=== PATIENT | male | born 1955 | race Caucasian/White ===

== ENCOUNTER 2017-03-16 10:38 | Inpatient (IN) | payer SELFPAY ==
--- NOTE | ~2017-03-16 | IDS ---
Interim Discharge Summary [facility] [address] [place]. [address] NAME: HOLDEN JUDGE : 51 STATUS : DIS IN PAT#: [id number] AGE: 61 ADM/REG DATE : 03/16/17 MR#: [id number] REPORT SERV DATE: 04/15/17 DICTATED BY: SCOTTIE LAWLER DATE: 04/15/17 REPORT STATUS : Draft TRANSCRIBED BY: MODL DATE: 04/15/17 ADMISSION DATE: 03/16/2017 DISCHARGE DATE: 04/13/2017 This interim discharge summary will cover the dates of 04/05/2017 until 04/09/2017. CURRENT INTERIM DIAGNOSES: Includes, 1. Osteomyelitis of the left foot methicillin-resistant Staphylococcus aureus, status post I and D and bone debridement on 03/20/2017. 2. Diabetes type 2, hemoglobin A1c 8.5. 3. Iron-deficiency anemia. 4. Hypertension. 5. Early dementia and cognitive impairment. 6. Gait impairment. 7. Neuropathy. HISTORY OF PRESENT ILLNESS: Please see initial H and P of Dr. Jacob Gold. This patient was admitted from Dr. Maradiaga's office for left foot osteomyelitis. The patient had consultants during this admission of Infectious Disease, Podiatry, and Psychiatry. Please see the interim discharge summaries of Dr. Zachary Olivares and the interim summaries of Dr. Jacob Gold as well for a lengthy hospital course. Now continuation in hospital course beginning on 04/05/2017, I began seeing the patient who had been improving and was actually able to be assisted up to chair by the nurse's. He was continued to be nonweightbearing on the left lower extremity at the order of Podiatry. He was continued on his IV vancomycin to be completed on the date of 04/05/2017. Blood sugars were mildly elevated and I increased his metformin to compensate for this. In a followup the next day, I did notice that he seemed to have a tendency to repeat himself in conversation and seemed his short-term memory was somewhat impaired and his overall judgment were not the most prudent, although he was alert and oriented, he was unable to answer simple questions about some of his living arrangements and prior medical history including his doctor, where he got his medications, and so forth. We were initially waiting on decision for [facility] or [facility] and neither of these were able to be established and under further discussion with the patient and the patient's family and Case Management, it was discovered the patient lived in a trailer behind a car lot. The trailer did not even have a bathroom. He would have difficulty getting in and out of the trailer and felt like this was an unsafe environment for him given his cognitive impairment and nonweightbearing status of his left lower extremity. He needed followup in regard to the left lower extremity anyway and further surgeries under the watchful eye of Podiatry. The nursing staff and Physical Therapy were concerned about his ability to care for himself. It turned out to be a difficult disposition with his self-care deficit, memory issues, and his living arrangement in a camper. I asked Psychiatry for a formal evaluation to be performed and hopefully a safe living arrangement will be able to be established for him to be discharged to home and perhaps with his sister or brother. We are in the process of attempting to contact them, messages have been left. Dr. Gold to assume care of this patient on the morning of 04/10/2017. Interim Discharge Summary [address] [address] NAME: HOLDEN JUDGE : 51 STATUS : DIS IN PAT#: [id number] AGE: 61 ADM/REG DATE : 03/16/17 MR#: [id number] REPORT SERV DATE: 04/15/17 DICTATED BY: SCOTTIE LAWLER DATE: 04/15/17 REPORT STATUS : Draft TRANSCRIBED BY: LIDIA DATE: 04/15/17 RANDI/LIDIA Scottie Lawler NP / [id number] CC: Jacob Gold M.D.
--- NOTE | ~2017-03-16 | IDS ---
Interim Discharge Summary [facility] [address] [place]. [address] NAME: HOLDEN JUDGE : 51 STATUS : ADM IN PAT#: [id number] AGE: 61 ADM/REG DATE : 03/16/17 MR#: [id number] REPORT SERV DATE: 04/05/17 DICTATED BY: OTIS GOLD DATE: 04/04/17 REPORT STATUS : Draft TRANSCRIBED BY: MODL DATE: 04/04/17 ADMISSION DATE: 03/16/2017 DISCHARGE DATE: Interim summary covers period 03/27/2017 through 04/04/2017. CURRENT DIAGNOSES: 1. Left foot methicillin-resistant Staphylococcus aureus diabetic foot infection with fifth metatarsal osteomyelitis, status post debridement and excision of fifth metatarsal base with peroneus brevis tendon transfer, 03/20/2017, Dr. Maradiaga. 2. Uncontrolled diabetes. 3. Cognitive impairment with visual hallucinations, consider Lewy body disease. 4. Neuropathy. 5. Iron deficiency. Replaced with Nulecit. Negative stools for Hemoccult. At some point, need endoscopic evaluation. 6. Chronic anemia. 7. Hypertension. OPERATIONS AND PROCEDURES: During this interim, None. INTERIM SUMMARY: He has continued to receive vancomycin. His treatment course per Infectious Disease recommendation finishes on 04/05/2017. There have been no complications with this therapy to date and he has maintained a normal renal function. His diabetes control has significantly improved with the use of b.i.d. metformin and correction scale insulin with a.c. and h.s. blood sugars for the last 48 hours ranging from 117 to 182. Because of some cognitive issues with varying degrees of confusion as well as some visual hallucinations, additional testing was done that included an EEG. This was read by Dr. Liu as mildly abnormal, predominantly due to low amplitude and lack of well-formed waking rhythm with abnormal sleep pattern without evolution of sleep to stage II. Findings nonspecific. No clear epileptiform activity. In addition, a brain MRI was done which showed chronic small vessel ischemic changes, mild for age. He has been started on low-dose Aricept. Transition plans are still not established. He is walking with a walker. He has been seen by PT. He is learning how to navigate steps. He has a . He is to remain nonweightbearing until followup with Dr. Maradiaga postdischarge next week. He currently lives in a camper on his work site, [email or web address]. The dentist Leighton Vasquez is his power of state's attorney. I spoke with him today. Case Management is diligently working to provide a safe transition. Hospitalist care will be assumed by Dr. Olivares on 04/05/2017. Interim Discharge Summary [address] [address] NAME: HOLDEN JUDGE : 51 STATUS : ADM IN PAT#: [id number] AGE: 61 ADM/REG DATE : 03/16/17 MR#: [id number] REPORT SERV DATE: 04/05/17 DICTATED BY: OTIS GOLD DATE: 04/04/17 REPORT STATUS : Draft TRANSCRIBED BY: LIDIA DATE: 04/04/17 DD/LIDIA Otis Gold M.D. / [id number] CC: Otis Gold M.D.
--- NOTE | ~2017-03-16 | HP ---
History And Physical [facility] [address] [place]. [address] NAME: HOLDEN DELEON : 51 STATUS : ADM IN [facility]#: [id number] AGE: 61 ADM/REG DATE : 03/16/17 MR#: [id number] REPORT SERV DATE: 03/16/17 DICTATED BY: OTIS GOLD DATE: 03/16/17 REPORT STATUS : Draft TRANSCRIBED BY: MODRonel DATE: 03/16/17 DATE OF ADMISSION: 03/16/2017 CHIEF COMPLAINT: This is a 61-year-old white male without a primary care physician, referred from Dr. Maradiaga's office with left foot osteomyelitis. The history was obtained from the patient, Dr. Maradiaga, and review of medical records on [facility] [address]. HISTORY OF PRESENT ILLNESS: Mr. Deleon was advised to see Dr. Maradiaga by his employer because of some left foot pain that he has been having, particularly walking on outside gravel at the place of his employment. He has a left foot wound but has not been having any drainage. He has not been having any fever, chills, or sweats. He has lost about 11 pounds over 2 to 3 years which has been intentional. He has not had any rash or redness over his foot. He has some numbness. He has not had any headache, earache, sore throat, chest pain, shortness of breath, cough, dizziness, syncope, or tachy palpitations. He has not had any difficulty chewing or swallowing and has had no easy satiety, reflux, bloating, abdominal pain, constipation, diarrhea, change in bowel habits, or rectal bleeding. He has not had any dysuria, hematuria, or trouble starting or stopping his urinary stream. He has had 3 previous toe amputations on the left side and has an abnormal gait. He wears tennis shoes. He has a previous history of osteomyelitis of right 5th metatarsal head and a plantar ulceration. He had a right 5th metatarsal head resection and ulcer excision on 02/18/2014. He has no history of cancer, thyroid disease, COPD, sleep apnea, pulmonary fibrosis, documented coronary disease, syncope, stroke, seizure, gastrointestinal bleeding, pancreatitis, or hepatitis. He has not required evaluation by Urology for urinary bleeding or renal stones. He has no systemic rheumatic disorder and is not on immunosuppressive therapy. His other medical history includes 1. Diabetes. 2. Neuropathy. 3. Hypertension. ALLERGIES OR INTOLERANCE: To penicillin. HOME MEDICATIONS: Zestoretic 20/25 daily and Glucophage 500 mg twice daily. SOCIAL HISTORY: Not . No children. No tobacco or alcohol use. 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 FAMILY HISTORY: Mother last month with dementia in her 80s. Father had previously of bladder cancer. A sister with leukemia. He has a brother living and well. History And Physical [address] [address] NAME: HOLDEN DELEON : 51 STATUS : ADM IN [facility]#: [id number] AGE: 61 ADM/REG DATE : 03/16/17 MR#: [id number] REPORT SERV DATE: 03/16/17 DICTATED BY: OTIS GOLD DATE: 03/16/17 REPORT STATUS : Draft TRANSCRIBED BY: LIDIA DATE: 03/16/17 REVIEW OF SYSTEMS: Complete, done with the patient in room and negative except as noted above. PHYSICAL EXAMINATION: VITAL SIGNS: O2 saturation is 99% on room air, blood pressure 120/73, temperature 97.4, pulse 75, and respirations 18. GENERAL: This is a stated age-appearing white male, who is alert, conversant, and appropriate. SKIN: Warm and dry. EXTREMITIES: Bilateral lower extremities have a scaly skin and some lymphedema. There is no erythema, lymphangitis, or wound with drainage. There is a callus on lateral aspect of surgically deformed left foot which is nontender. NODES: No palpable axillary, cervical, or inguinal. HEENT: Atraumatic with symmetric facies. Lids, sclerae, and conjunctivae negative. No xanthelasma, scleral icterus, or conjunctival petechiae or injection. Pupils are equal, round, and reactive to light. Extraocular movements intact. No nystagmus. Hearing intact. External ears negative. Ear canals and TMs normal. Nose negative. Anterior nares clear. Lips, gums, mucosa, hard and soft palate, posterior pharynx, tongue negative. He has poor dentition with carious teeth. NECK: No visible JVD or asymmetry. No palpable mass, goiter, or tenderness. He does have a sebaceous cyst to the right trapezius muscle. LUNGS: Clear to auscultation. Normal respiratory effort. HEART: PMI not palpable. Regular rate and rhythm. No murmur, gallop, rub, or click. Pulses 2+ and symmetric radial, carotids, femoral, and dorsalis pedis and popliteal. ABDOMEN: Soft, nontender. No guarding, rebound, or rigidity. Cannot feel liver, spleen, kidneys, or aortic pulsation in upper or lower extremities. EXTREMITIES: No active synovitis or clubbing. Status post left 5th, 4th, 3rd toe resection, left foot with high arch and callus as noted above. NEUROLOGIC: Mental status normal. Cranial nerves 2 through 12 normal. Deep tendon reflexes 1+ triceps, brachioradialis and knee jerk. Absent ankle jerk. Downgoing toes. Sensory intact to touch. PSYCHIATRIC: Appropriate mood and affect. DATA: Sodium 141, potassium 4.4, chloride 103, CO2 of 30, BUN 16, creatinine 1.27. Glucose 147, calcium 8.6, total protein 7.1, albumin 3.7, globulin is 3.4, total bilirubin 0.4, alkaline phosphatase 97, ALT 15, AST 12. Hemoglobin A1c is pending, white count 3.9, hemoglobin 12.7, and platelets are 193,000. Urinalysis not available. ASSESSMENT: This is a 61-year-old white male, referred with 1. Suspected osteomyelitis, left foot. 2. Left foot wound. 3. Diabetes, on oral treatment. 4. Neuropathy. 5. Previous toe amputation x3 left foot and right 5th metatarsal head resection with ulcer excision, right foot. 6. Anemia. History And Physical [address] [address] NAME: HOLDEN DELEON : 51 STATUS : ADM IN [facility]#: [id number] AGE: 61 ADM/REG DATE : 03/16/17 MR#: [id number] REPORT SERV DATE: 03/16/17 DICTATED BY: OTIS GOLD DATE: 03/16/17 REPORT STATUS : Draft TRANSCRIBED BY: LIDIA DATE: 03/16/17 7. Leukopenia. PLAN: Dr. Maradiaga has requested Infectious Disease consultation, MRI imaging, arterial Dopplers, and plain radiographs. We will continue home medications. Do anemia evaluation and check baseline x-ray and EKG anticipating OR time if in fact osteomyelitis is documented. Further recommendations pending above. DD/MODL Otis Gold M.D. / [id number] CC: Efrain Mo M.D.
--- NOTE | ~2017-03-16 | CN ---
Consultation Report [facility] [address] [place]. [address] NAME: HOLDEN JUDGE : 51 STATUS : ADM IN PAT#: [id number] AGE: 61 ADM/REG DATE : 03/16/17 MR#: [id number] REPORT SERV DATE: 04/10/17 DICTATED BY: LEX MULLEN DATE: 04/10/17 REPORT STATUS : Draft TRANSCRIBED BY: MODRonel DATE: 04/10/17 PSYCHIATRIC CONSULTATION DATE OF CONSULTATION: 04/10/2017 I reviewed this patient's medical record. I discussed his status with Dr. Gold. I discussed his status with the social security specialist and with his physical therapist. He was admitted with osteomyelitis of his left foot. He is now status post debridement. There is concern about his cognitive capacity to make decisions regarding his placement. The social security specialist informs me that he was planning to return to his trailer, but the patient now tells me that he is planning to live with his sister in [place]. PAST PSYCHIATRIC HISTORY: No preexisting psychiatric issues. During this hospitalization; however, a problem with short-term memory was noted by the physical therapist and others. SOCIAL HISTORY: He is single. He was working in secondhand car sales and he was living in a small [place] [facility]. He now tells me that he will no longer be able to work there. He drives a car. He has never been lost while driving. MENTAL STATUS: He was sitting up in a chair. He was talkative. His mood was euthymic. He displayed an appropriate affect and a good affective range. His thinking was logical. He had no delusions. He had no hallucinations at this time. He was oriented to "May"- "[facility]"-"[facility]." He did not know the year and was not able to make a guess at it. He had short-term memory as demonstrated by his repeating himself on a number of occasions. DIAGNOSIS: Mild cognitive impairment versus mild dementia. RECOMMENDATIONS: He was able to give an adequate description of his illness and his associated disability. He was aware that his previous living arrangement would no longer be suitable and that his old job would no longer be available. He seemed to be content with going to live with his sister. In general, he appears to have capacity for medical and placement decision making. I will sign off. ZAHRAA/LIDIA Lex Mullen M.D. / [id number] CC: Jacob Gold M.D.
--- NOTE | ~2017-03-16 | DS ---
Discharge Summary [facility] [address] [place]. [address] NAME: HOLDEN JUDGE : 51 STATUS : DIS IN PAT#: [id number] AGE: 61 ADM/REG DATE : 03/16/17 MR#: [id number] REPORT SERV DATE: 04/16/17 DICTATED BY: OTIS GOLD DATE: 04/13/17 REPORT STATUS : Draft TRANSCRIBED BY: MODL DATE: 04/13/17 ADMISSION DATE: 03/16/2017 DISCHARGE DATE: 04/13/2017 DISCHARGE DIAGNOSES: 1. Left foot methicillin-resistant Staphylococcus aureus; diabetic foot infection with fifth metatarsal osteomyelitis, status post debridement and excision of fifth metatarsal base with peroneus brevis tendon transfer on 03/20/2017, Dr. Maradiaga. 2. Uncontrolled diabetes, improved at discharge. 3. Cognitive impairment with visual hallucinations. Consider Lewy body disease. 4. Peripheral neuropathy. 5. Iron deficiency. Replace with Nulecit. Negative stools for Hemoccult. Needs outpatient endoscopic GI evaluation. 6. Chronic anemia. 7. Hypertension with orthostatic hypotension in hospital, on home medications. Medications discontinued. Normotensive at discharge. OPERATION/PROCEDURES: See above. PRESENT ILLNESS: This is a 61-year-old white male without a primary care physician who was referred from Dr. Maradiaga's office the day of admission with left foot osteomyelitis as outlined on admission history and physical examination dictated by the undersigned. ADDITIONAL HISTORY: Per history and physical examination. PHYSICAL EXAMINATION: Per history and physical examination. ADMISSION LABORATORY: Per history and physical examination. HOSPITAL COURSE: His hospital course is as outlined on interim summaries dictated by Dr. Zachary Olivares on 03/26/2017, the undersigned on 04/04/2017, and by Carlos Enrique Rojas APN, on 04/09/2017 (yet to be dictated). Hospital course from 04/10/2017 through 04/13/2017: The patient's discharge had been delayed pending a safe transition. The medical care team had originally been apprised that the patient and his family were estranged. As it turns out, this was not the case. The patient was visited by his brother and this was discussed. The patient's sister, Janett, agreed to take the patient home to live with her for an indefinite period of time. There were no new medical problems during this time. He is being discharged today with followup at the [facility]. He will also follow with Dr. Maradiaga. In the future, he needs an outpatient colonoscopy and EGD. He was given a rolling walker for home use at discharge. Prior to discharge, his daughter filled Discharge Summary [facility] [address] [place]. [address] NAME: HOLDEN JUDGE : 51 STATUS : DIS IN PAT#: [id number] AGE: 61 ADM/REG DATE : 03/16/17 MR#: [id number] REPORT SERV DATE: 04/16/17 DICTATED BY: OTIS GOLD DATE: 04/13/17 REPORT STATUS : Draft TRANSCRIBED BY: MODL DATE: 04/13/17 out applications for [employer] and [employer]. DISCHARGE MEDICATIONS: Will be B12 of 1000 mcg p.o. daily, Aricept 5 mg at bedtime, folic acid 1 mg daily, multivitamin 1 daily, MiraLAX 1 packet, and Senokot 2 as needed, metformin a 1000 mg twice daily. He will not use Prinivil at this time. DICTATED BY: Otis Gold M.D. DD/LIDIA Otis Gold M.D. / [id number] CC: Vivien Love D.P.M. [facility]
--- NOTE | ~2017-03-16 | OP ---
Record Of Operation [facility] [address] [place]. [address] NAME: HOLDEN JUDGE : 51 STATUS : DIS IN PAT#: [id number] AGE: 61 ADM/REG DATE : 03/16/17 MR#: [id number] REPORT SERV DATE: 05/14/17 DICTATED BY: MOUSTAPHA MARADIAGA DATE: 05/11/17 REPORT STATUS : Draft TRANSCRIBED BY: LIDIA DATE: 05/11/17 DATE OF PROCEDURE: 03/20/2017 SURGERY PERFORMED: At [facility]. PREOPERATIVE DIAGNOSES: 1. Osteomyelitis left foot. 2. 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 POSTOPERATIVE DIAGNOSES: 1. Osteomyelitis left foot. 2. 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 PROCEDURES: 1. Bone debridement, left foot including debridement of residual left 5th metatarsal and portions of the left cuboid bone. 2. Left peroneus brevis tendon transfer. PATHOLOGY: Bone and soft tissue sent for histologic analysis as well as deep tissue culture sent for Gram stain, culture, sensitivity. ANESTHESIA: General. HEMOSTASIS: 350 mmHg thigh tourniquet. ESTIMATED BLOOD LOSS: Less than 5 mL. MATERIALS: Arthrex SwiveLock bone anchor with 2-0 FiberWire, 2-0 Ethilon. COMPLICATIONS: None. INDICATIONS: This is a 61-year-old gentleman who presented recently to the office with concern of a wound on his left foot. The patient underwent surgical debridement of the left foot including removal of the distal left 5th metatarsal several months ago and unfortunately was lost to follow up. The patient presented to the office with non healing ulceration, but upon examination it was noted that he had a cavovarus foot type with ankle varus noted particularly with the patient weightbearing. The apex of the deformity laterally was directly at the site of the ulceration. There was some reduced ability to the left foot ankle; however, the deformity was only partially reducible. There was concern that there was exposed bone noted at the site of the ulceration and based on these clinical findings, I recommended the patient be admitted to the hospital for IV antibiotic therapy and surgical debridement. Discussed at length with the patient the alternatives, benefits, possible complications of surgery which would involve debridement of the residual left 5th metatarsal as well as debridement of infected bone in the cuboid. I also discussed with the patient that due to the peroneal dysfunction that removal of the 5th metatarsal would further weaken the left peroneus brevis tendon resulting in worsening of cavovarus foot type Record Of Operation [facility] [address] [place]. [address] NAME: HOLDEN JUDGE : 51 STATUS : DIS IN PAT#: [id number] AGE: 61 ADM/REG DATE : 03/16/17 MR#: [id number] REPORT SERV DATE: 05/14/17 DICTATED BY: MOUSTAPHA MARADIAGA DATE: 05/11/17 REPORT STATUS : Draft TRANSCRIBED BY: MODRonel DATE: 05/11/17 and that transfer of the tendon can be performed either to soft tissue or bone to help prevent any further progression of this deformity. No promises or guarantees were given. The patient is scheduled for surgery. BRIEF SUMMARY OF OPERATION: The patient was brought to the operating room, placed on the operating table in supine position. Appropriate monitoring equipment including EKG, blood pressure, pulse oximeter were attached to the patient and found to be in working order. IV access was established on the floor. Patient was receiving IV antibiotic therapy. The patient was identified by the surgeon, general seizure was induced. The patient's left foot and leg were then prepped and draped in usual sterile manner. The left foot and leg were elevated and pneumatic thigh tourniquet was raised to 350 mmHg. Attention was directed toward the lateral aspect of the left foot where a curvilinear incision was made coursing along the residual left 5th metatarsal turning superiorly as the incision went proximal along the distal peroneus brevis tendon. The incision was deepened with sharp and blunt dissection. Superficial veins were identified and ligated via electrocautery. Neurovascular structures were identified, retracted from the operative site. Incision was opened exposing the entire residual left 5th metatarsal bone. There was some necrosis to the distal aspect of the bone consistent with osteomyelitis. At this time, the peroneus brevis tendon was clamped and the 5th metatarsal was dissected from the operative site in toto. This resected bone was sent for histologic analysis. Portions of the distal cuboid were also resected for bone biopsy as well as to resect any suspicious osteomyelitic bone. There did not appear to be adequate capsular tissue in order to tenodese the peroneus brevis tendon to the soft tissue. It was felt that a tenodesis of the tendon to bone would be more stable. An Arthrex SwiveLock was inserted into the dorsal lateral aspect of the residual cuboid on the left foot. With the foot and ankle reduced as close to neutral position as possible, the tenodesis of the brevis tendon was performed with a modified Santiago type suture with the FiberWire from the SwiveLock. Once the tenodesis was intact, operative site was copiously irrigated with 3000 mL normal saline. Pulse irrigation was completed. The skin was remodeled for closure. The proximal distal aspects of the incision were reapproximated with 2-0 Ethilon suture in a simple interrupted and interrupted horizontal mattress fashion. A small portion of the central part of the incision at the original wound was left open. This was packed with quarter-inch iodoform packing. Operative site infiltrated with 1:1 mixture 1% Xylocaine plain and 0.5% Marcaine plain for postoperative analgesia. Standard postop dressing including dry sterile gauze, and a 4 inch Burke wrap was applied to the left foot. Tourniquet was let down. Cap refills were noted to return to the foot immediately and be well within normal limits under 3 seconds. A 4-inch Burke wrap was applied over the postop dressings for adequate postop compression. Capillary refills of this residual toes on the left foot were within normal limits after application of the Burke wrap. The patient tolerated procedure and anesthesia well. The patient left the operating room, returned to recovery room with vital signs stable and vital signs intact. The patient will be readmitted to the floor at [facility] for continued IV antibiotic therapy and postoperative care. We will plan to remove the packing tomorrow and re-dress the left foot and apply a posterior splint to further stabilize the tenodesis of the left foot. I discussed again with the patient and patient's family that this is a partially reducible Record Of Operation [address] [place]. [address] NAME: HOLDEN JUDGE : 51 STATUS : DIS IN PAT#: [id number] AGE: 61 ADM/REG DATE : 03/16/17 MR#: [id number] REPORT SERV DATE: 05/14/17 DICTATED BY: MOUSTAPHA MARADIAGA DATE: 06/16/17 REPORT STATUS : Draft TRANSCRIBED BY: LIDIA DATE: 05/11/17 rear foot and ankle varus deformity due to the longstanding presence of this deformity. I discussed with the patient and the patient's family that based on the patient's progress that this possibility of further surgery in order to reduce this deformity as well as offloading this deformity with an ankle-foot orthotic. We will follow up the patient on the floor. /LIDIA Moustapha Maradiaga D.P.M. / [id number]
--- NOTE | ~2017-03-16 | CN ---
Consultation Report [facility] [address] [place]. [address] NAME: HOLDEN JUDGE : 51 STATUS : ADM IN PAT#: [id number] AGE: 61 ADM/REG DATE : 03/16/17 MR#: [id number] REPORT SERV DATE: 03/16/17 DICTATED BY: DIMITRI GONZALEZ DATE: 03/16/17 REPORT STATUS : Draft TRANSCRIBED BY: MODRonel DATE: 03/16/17 INFECTIOUS DISEASE CONSULT DATE OF CONSULTATION: REASON FOR REFERRAL: Evaluation and treatment of diabetic foot infection. HISTORY OF PRESENT ILLNESS: The patient is a 61-year-old male. He has a history of diabetes and diabetic neuropathy in his lower extremities. He has lost toes on his left foot before and then was here again with a deep infection including bone more than three years ago, for which he had a left metatarsal head resection. 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 He was seen by Dr. Maradiaga and had development of a chronic-appearing ulcer there. I do not have any records to say whether or not a culture of that has been taken or any x-rays, he was on trimethoprim and sulfa as an outpatient. He is admitted now for further workup. He has no fevers, chills, malaise, or flu-like symptoms and he says he feels quite normal. He has neuropathy and is not complaining of pain, and the foot is mildly red and no active drainage at present. There have been no unusual environmental exposures. PAST MEDICAL HISTORY: Otherwise unremarkable. MEDICATIONS: He has been on trimethoprim and sulfa. Vancomycin has been ordered. ALLERGIES: HE HAS NO KNOWN ANTIMICROBIAL ALLERGIES. SOCIAL HISTORY: He works in [employer] as previously mentioned. He is single, nonsmoker. No history of alcohol or substance abuse. FAMILY HISTORY: Noncontributory. PHYSICAL EXAMINATION: GENERAL: Nontoxic, elderly male, in no acute distress. Alert and oriented x3. VITAL SIGNS: His temperature so far has been 97.4 with a pulse of 75, respirations 18, blood pressure 120/73. Weight 77 kg. HEENT: Sclerae are clear. No oral lesions. NECK: Supple. LUNGS: Clear. HEART: Regular rate and rhythm. ABDOMEN: Soft, nontender. Positive bowel sounds. EXTREMITIES: Left foot shows incision from the past metatarsal resection about the mid foot laterally. There is a shallow ulceration that appears to be chronic with a mild surrounding redness, but no warmth. I could express no drainage. There is no odor associated with it. No acute-appearing lesions on any other extremities. Consultation Report [address] [place]. [address] NAME: HOLDEN JUDGE : 51 STATUS : ADM IN [facility]#: [id number] AGE: 61 ADM/REG DATE : 03/16/17 MR#: [id number] REPORT SERV DATE: 03/16/17 DICTATED BY: DIMITRI GONZALEZ DATE: 03/16/17 REPORT STATUS : Draft TRANSCRIBED BY: LIDIA DATE: 03/16/17 LABORATORY DATA: White count 3.9, hematocrit 37.3, and platelets 193. His sedimentation rate is 10. BUN and creatinine are 16 and 1.27. IMPRESSION: Diabetic foot infection, appears to be chronic, possibly osteo, but it appears very nonacute at present. RECOMMENDATIONS: 1. We would hold antibiotics. 2. Evaluate imaging. If a procedure is indicated, we should continue to hold antibiotics until that is done, so good deep cultures can be done off the antibiotics to increase the yield. Finally, I will follow the patient with you. I appreciate very much your consulting on this patient. SUKHDEV Dimitri Gonzalez M.D. / [id number] CC: Vivien Romero D.P.M.
--- NOTE | ~2017-03-16 | EEG ---
Electroencephalogram [facility] [address] [place]. [address] NAME: HOLDEN JUDGE : 51 STATUS : ADM IN PAT#: [id number] AGE: 61 ADM/REG DATE : 03/16/17 MR#: [id number] REPORT SERV DATE: 03/28/17 DICTATED BY: NOHEMI ANTOINE DATE: 03/28/17 REPORT STATUS : Draft TRANSCRIBED BY: MODL DATE: 03/28/17 DATE OF EXAM: 03/28/2017. EEG NUMBER: [id number]. HOURS OF SLEEP: 7 to 8. CENTRAL OFFICE OPERATOR SUPERVISOR: Carlos Enrique Dorantes INTRODUCTION: This is an 18-channel EEG recorded with scalp electrodes in the International 10-20 system. The patient is a 61-year-old male with delirium. Listed medications include alprazolam, Prinivil, hydrochlorothiazide, folic acid, B12, vancomycin, and NovoLog insulin. DESCRIPTION: The background rhythm while awake consisted of low amplitude predominantly beta activity seen diffusely from all head regions. A well-formed alpha rhythm was not recorded. He was very drowsy and remained drowsy throughout the EEG; however, a well-formed stage II sleep was not recorded. Occasionally, there was slowing from the left temporal region; however, this was very brief and did not persist. There were rare sharply contoured waves from the temporal regions also, infrequent and not clearly epileptogenic. Photic stimulation from the 1 through 21 hertz frequencies produced a slight driving response at the mid and high frequencies, although of low amplitude. Hyperventilation was not performed. IMPRESSION: THIS EEG IS MILDLY ABNORMAL PREDOMINANTLY DUE TO LOW AMPLITUDES AND LACK OF WELL-FORMED WAKING RHYTHM AND ABNORMAL SLEEP PATTERN WITHOUT EVOLUTION OF SLEEP TO STAGE II. THESE FINDINGS ARE NONSPECIFIC, BUT MAY INDICATE A SLEEP DISTURBANCE. THERE IS NO CLEAR EPILEPTIFORM ACTIVITY NOTED. LOW AMPLITUDES ARE OCCASIONALLY A NORMAL VARIANT, BUT BILATERAL SUPERFICIAL LESIONS MAY LOWER THE AMPLITUDES OF THE EEG WELL. RAMBO/LIDIA Nohemi Antoine M.D. / [id number] CC: Jacob Gold M.D.
--- NOTE | ~2017-03-16 | IDS ---
Interim Discharge Summary [facility] [address] [place]. [address] NAME: HOLDEN JUDGE : 51 STATUS : ADM IN PAT#: [id number] AGE: 61 ADM/REG DATE : 03/16/17 MR#: [id number] REPORT SERV DATE: 03/26/17 DICTATED BY: ZACHARY MAY DATE: 03/26/17 REPORT STATUS : Draft TRANSCRIBED BY: MODL DATE: 03/26/17 ADMISSION DATE: 03/16/2017 DISCHARGE DATE: WORKING DIAGNOSIS: 1. Left foot methicillin-resistant Staphylococcus aureus osteomyelitis, status post debridement, postoperative day #6. 2. Uncontrolled diabetes, present on admission, but blood sugar has been better controlled here. 3. Hypertension. 4. Peripheral neuropathy. 5. Iron-deficiency anemia with negative Hemoccult stools and stable hemoglobin. 6. Cognitive impairment, mild and compensated. CONSULTANTS: 1. Dr. Chandler of Podiatry. 2. Dr. Kemp of Infectious Disease. PROCEDURES: Debridement of his left foot wounds on 03/21/2017, by Dr. Chandler. HOSPITAL COURSE: This is a 61-year-old gentleman with a history of diabetes, hypertension, neuropathy, who was admitted to the hospital with an infected left foot wounds with MRSA and osteomyelitis. For details, please refer to excellent H and P by Dr. Jacob Gold. In summary, the patient was admitted and was started on IV antibiotic therapy. The patient was evaluated by Podiatry and underwent wound debridement. The patient has also been followed by Dr. Kemp. Postop cultures, it seems that Podiatry was able to get all of the infected bone and thus the patient currently only needs two weeks of IV antibiotic therapy postop. The patient currently has ten more days of IV vancomycin therapy left until 04/05/2017. Otherwise, the patient has been doing extremely well. The patient actually walked 125 feet with physical therapy yesterday and thus he does not qualify for SNF. Case Management is now working to get the patient home tomorrow with nine days remaining of IV antibiotics therapy for complete at home. CINTIA/LIDIA Zachary May MD / [id number] CC: Zachary May MD
[~2017-03-16 10:38] MED LIST: ASAB PO; CEFADROXIL1 GM PO; HUMULIN SC; IBU-200200 MG PO; LEVAQUIN750 MG PO; MULTIPLE VIT PO; T PO
[2017-03-16 12:03] LABS: BASOPHILS ABSOLUTE 0.04 10/3/uL (0.0-0.16); EOSINOPHILS 2.8 %; EOSINOPHILS ABSOLUTE 0.11 10/3/uL (0.0-0.53); HEMATOCRIT 37.3 % (40.0-51.0); HEMOGLOBIN 12.7 g/dL (13.6-17.8); IMMATURE GRANULOCYTES 0.3 %; IMMATURE GRANULOCYTES ABSOLUTE 0.01 10/3/uL (0.0-0.11); LYMPHOCYTES 34.1 %; LYMPHOCYTES ABSOLUTE 1.34 10/3/uL (0.67-4.30); MEAN CORPUSCULAR HEMOGLOB 28.9 pg (26.0-34.0); MEAN CORPUSCULAR VOLUME 84.8 fL (80-100); MONOCYTES 8.1 %; MONOCYTES ABSOLUTE 0.32 10/3/uL (0.21-1.20); NEUTROPHILS 53.7 %; NEUTROPHILS ABSOLUTE 2.11 10/3/uL (2.02-8.40); PLATELET COUNT 193 10/3/uL (150-400); WHITE BLOOD CELLS 3.9 10/3/uL (4.5-10.5)
[2017-03-16 12:05] LABS: MANUAL DIFF NO %
[2017-03-16 12:12] LABS: INTERNATIONAL NORMAL RATI 1.1 UNITS (-); PROTIME (NOT ORD) 14.3 SEC (12.0-14.5)
[2017-03-16 12:17] LABS: A/G RATIO 1.1 (0.7-1.9); ALKALINE PHOSPHATASE 97 U/L (45-117); CALCIUM, SERUM 8.6 MG/DL (8.5-10.4); CHLORIDE, SERUM 103 MMOL/L (96-112); GLOBULIN 3.4 G/DL (2.5-4.1); POTASSIUM, SERUM 4.4 MMOL/L (3.5-5.3); SGOT(AST) 12 U/L (5-40); SGPT(ALT) 15 U/L (5-65); SODIUM, SERUM 141 MMOL/L (135-148); TOTAL BILIRUBIN 0.4 MG/DL (0-1.2); TOTAL PROTEIN 7.1 G/DL (6.0-8.5)
[2017-03-16 12:21] LABS: ALBUMIN 3.7 G/DL (3.5-5.0); BUN (BLOOD UREA NITROGEN) 16 MG/DL (6-23); CO2 (CARBON DIOXIDE) 30 MMOL/L (24-34); CREATININE 1.27 MG/DL (0.70-1.30); GFR AFRICAN AMERICAN 69 ML/MIN (>=60); GFR NON AFRICAN AMERICAN 60 ML/MIN (>=60); GLUCOSE, SERUM 147 MG/DL (60-99)
[2017-03-16 12:57] LABS: SED RATE 10 MM/HR (0-15)
[2017-03-16] MEDS ORDERED: ZESTORETIC1 TA1 PO (13:32)
[2017-03-16] MEDS ORDERED: GLUCPH PO (13:32)
[2017-03-16 15:03] LABS: ASCORBIC ACID (UR NOT ORDER) NEG (NEG); BILIRUBIN, URINE NEGATIVE (NEG); KETONE, URINE NEGATIVE (NEG); LEUKOCYTE ESTERASE(NOT OR NEG (NEG); WBC (NOT ORDERED) (RFLEX) < 1 (0-5)
[2017-03-16 17:19] LABS: RETICULOCYTE COUNT 0.8 % (0.5-2.9); RETICULOCYTE COUNT ABSOLUTE 35.3 10/3/uL (20.2-119.8)
[2017-03-16 17:40] LABS: FERRITIN 29 NG/ML (26-388); IRON BINDING CAPACITY 324 MCG/DL (250-450); IRON, SERUM 105 MCG/DL (35-150); ULTRASENSITIVE TSH 0.795 MCIU/ML (0.358-3.740)
[2017-03-17 06:34] LABS: T PROTEIN (ELECT)(NOT OR 6.7 G/DL (6.0-8.5)
[2017-03-18 06:54] LABS: BASOPHILS 0.3 %; BASOPHILS ABSOLUTE 0.02 10/3/uL (0.0-0.16); EOSINOPHILS 2.5 %; EOSINOPHILS ABSOLUTE 0.15 10/3/uL (0.0-0.53); HEMATOCRIT 38.7 % (40.0-51.0); HEMOGLOBIN 13.2 g/dL (13.6-17.8); IMMATURE GRANULOCYTES 0.2 %; IMMATURE GRANULOCYTES ABSOLUTE 0.01 10/3/uL (0.0-0.11); LYMPHOCYTES 20.3 %; LYMPHOCYTES ABSOLUTE 1.21 10/3/uL (0.67-4.30); MEAN CORPUS HGB CONC 34.1 g/dL (32.0-36.0); MEAN CORPUSCULAR HEMOGLOB 29.1 pg (26.0-34.0); MEAN CORPUSCULAR VOLUME 85.2 fL (80-100); MEAN PLATELET VOLUME 9.5 fL (9.2-13.0); MONOCYTES 7.9 %; MONOCYTES ABSOLUTE 0.47 10/3/uL (0.21-1.20); NEUTROPHILS 68.8 %; NEUTROPHILS ABSOLUTE 4.11 10/3/uL (2.02-8.40); PLATELET COUNT 186 10/3/uL (150-400); RBC DISTRIBUTION WIDTH 12.5 % (12.0-16.0); RED CELL COUNT 4.54 10/6/uL (4.7-6.1); RETICULOCYTE COUNT 0.7 % (0.5-2.5); RETICULOCYTE COUNT ABSOLUTE 31.8 10/3/uL (20.2-119.8)
[2017-03-18 06:57] LABS: BUN (BLOOD UREA NITROGEN) 16 MG/DL (6-23); CALCIUM, SERUM 9.2 MG/DL (8.5-10.4); CHLORIDE, SERUM 104 MMOL/L (96-112); CO2 (CARBON DIOXIDE) 30 MMOL/L (24-34); CREATININE 0.88 MG/DL (0.70-1.30); GFR AFRICAN AMERICAN 106 ML/MIN (>=60); GFR NON AFRICAN AMERICAN 91 ML/MIN (>=60); GLUCOSE, SERUM 163 MG/DL (60-99); POTASSIUM, SERUM 4.4 MMOL/L (3.5-5.3); SODIUM, SERUM 140 MMOL/L (135-148)
[2017-03-18 07:13] LABS: MANUAL DIFF NO %
[2017-03-19 02:19] LABS: BASOPHILS 0.5 %; BASOPHILS ABSOLUTE 0.03 10/3/uL (0.0-0.16); EOSINOPHILS 2.4 %; EOSINOPHILS ABSOLUTE 0.15 10/3/uL (0.0-0.53); HEMATOCRIT 37.7 % (40.0-51.0); HEMOGLOBIN 13.1 g/dL (13.6-17.8); IMMATURE GRANULOCYTES 0.3 %; IMMATURE GRANULOCYTES ABSOLUTE 0.02 10/3/uL (0.0-0.11); LYMPHOCYTES 20.4 %; LYMPHOCYTES ABSOLUTE 1.28 10/3/uL (0.67-4.30); MEAN CORPUS HGB CONC 34.7 g/dL (32.0-36.0); MEAN CORPUSCULAR HEMOGLOB 29.2 pg (26.0-34.0); MEAN PLATELET VOLUME 9.6 fL (9.2-13.0); MONOCYTES 8.6 %; MONOCYTES ABSOLUTE 0.54 10/3/uL (0.21-1.20); NEUTROPHILS 67.8 %; NEUTROPHILS ABSOLUTE 4.24 10/3/uL (2.02-8.40); PLATELET COUNT 185 10/3/uL (150-400); RBC DISTRIBUTION WIDTH 12.6 % (12.0-16.0); RED CELL COUNT 4.49 10/6/uL (4.7-6.1); WHITE BLOOD CELLS 6.3 10/3/uL (4.5-10.5)
[2017-03-19 02:21] LABS: MANUAL DIFF NO %
[2017-03-19 02:30] LABS: BUN (BLOOD UREA NITROGEN) 19 MG/DL (6-23); CALCIUM, SERUM 8.7 MG/DL (8.5-10.4); CHLORIDE, SERUM 103 MMOL/L (96-112); CO2 (CARBON DIOXIDE) 29 MMOL/L (24-34); CREATININE 0.83 MG/DL (0.70-1.30); GFR AFRICAN AMERICAN 109 ML/MIN (>=60); GFR NON AFRICAN AMERICAN 94 ML/MIN (>=60); GLUCOSE, SERUM 178 MG/DL (60-99); POTASSIUM, SERUM 4.2 MMOL/L (3.5-5.3); SODIUM, SERUM 139 MMOL/L (135-148)
[2017-03-19 09:49] LABS: A/G 1.66 RATIO (0.9-2.10); ALB RELATIVE % 62.4 % (60.0-89.0); ALBUMIN (ELECTRO) 4.18 GM/DL (3.2-5.5); ALPHA 1 (ELECTRO) 0.21 GM/DL (0.1-0.4); ALPHA 1 RELAT % (NOT ORD) 3.1 % (1.0-4.0); ALPHA 2 (ELECTRO) 0.76 GM/DL (0.5-1.10); ALPHA 2 RELAT % 11.3 % (4.5-26.0); BETA GLOBULIN (SPE) 0.79 GM/DL (0.60-1.30); BETA RELATIVE % 11.8 % (9.0-22.0); GAMMA GLOBULIN (SPE) 0.76 G/DL (0.70-1.60); GAMMA RELAT % 11.4 % (6.0-22.0)
[2017-03-20 07:20] LABS: BASOPHILS 0.6 %; BASOPHILS ABSOLUTE 0.03 10/3/uL (0.0-0.16); EOSINOPHILS 2.2 %; EOSINOPHILS ABSOLUTE 0.11 10/3/uL (0.0-0.53); HEMATOCRIT 38.5 % (40.0-51.0); HEMOGLOBIN 13.2 g/dL (13.6-17.8); IMMATURE GRANULOCYTES 0.2 %; IMMATURE GRANULOCYTES ABSOLUTE 0.01 10/3/uL (0.0-0.11); LYMPHOCYTES 30.4 %; MANUAL DIFF NO %; MEAN CORPUS HGB CONC 34.3 g/dL (32.0-36.0); MEAN CORPUSCULAR HEMOGLOB 29.1 pg (26.0-34.0); MEAN PLATELET VOLUME 9.2 fL (9.2-13.0); MONOCYTES 10.1 %; NEUTROPHILS 56.5 %; NEUTROPHILS ABSOLUTE 2.78 10/3/uL (2.02-8.40); PLATELET COUNT 162 10/3/uL (150-400); RBC DISTRIBUTION WIDTH 12.6 % (12.0-16.0); RED CELL COUNT 4.53 10/6/uL (4.7-6.1); WHITE BLOOD CELLS 4.9 10/3/uL (4.5-10.5)
[2017-03-20 07:33] LABS: CALCIUM, SERUM 8.7 MG/DL (8.5-10.4); CHLORIDE, SERUM 105 MMOL/L (96-112); CO2 (CARBON DIOXIDE) 28 MMOL/L (24-34); CREATININE 0.68 MG/DL (0.70-1.30); GFR AFRICAN AMERICAN 118 ML/MIN (>=60); GFR NON AFRICAN AMERICAN 102 ML/MIN (>=60); POTASSIUM, SERUM 4.2 MMOL/L (3.5-5.3); SODIUM, SERUM 140 MMOL/L (135-148)
[2017-03-20 07:34] LABS: BUN (BLOOD UREA NITROGEN) 15 MG/DL (6-23); GLUCOSE, SERUM 126 MG/DL (60-99)
[2017-03-20 20:49] LABS: HEMATOCRIT 36.5 % (40.0-51.0); HEMOGLOBIN 12.7 g/dL (13.6-17.8)
[2017-03-21 06:24] LABS: BASOPHILS 0.6 %; BASOPHILS ABSOLUTE 0.04 10/3/uL (0.0-0.16); EOSINOPHILS 2.1 %; EOSINOPHILS ABSOLUTE 0.14 10/3/uL (0.0-0.53); HEMATOCRIT 36.7 % (40.0-51.0); HEMOGLOBIN 12.6 g/dL (13.6-17.8); IMMATURE GRANULOCYTES 0.2 %; IMMATURE GRANULOCYTES ABSOLUTE 0.01 10/3/uL (0.0-0.11); LYMPHOCYTES 17.2 %; LYMPHOCYTES ABSOLUTE 1.14 10/3/uL (0.67-4.30); MEAN CORPUS HGB CONC 34.3 g/dL (32.0-36.0); MEAN CORPUSCULAR HEMOGLOB 29.4 pg (26.0-34.0); MEAN CORPUSCULAR VOLUME 85.7 fL (80-100); MEAN PLATELET VOLUME 9.6 fL (9.2-13.0); MONOCYTES 9.2 %; MONOCYTES ABSOLUTE 0.61 10/3/uL (0.21-1.20); NEUTROPHILS 70.7 %; PLATELET COUNT 200 10/3/uL (150-400); RBC DISTRIBUTION WIDTH 12.6 % (12.0-16.0); RED CELL COUNT 4.28 10/6/uL (4.7-6.1); WHITE BLOOD CELLS 6.6 10/3/uL (4.5-10.5)
[2017-03-21 06:25] LABS: MANUAL DIFF NO %
[2017-03-21 07:21] LABS: SED RATE 13 MM/HR (0-15)
[2017-03-22 11:13] LABS: CREATININE 0.87 MG/DL (0.70-1.30)
[2017-03-23 06:07] LABS: CREATININE 0.85 MG/DL (0.70-1.30)
[2017-03-25 01:46] LABS: BASOPHILS 0.6 %; BASOPHILS ABSOLUTE 0.03 10/3/uL (0.0-0.16); EOSINOPHILS 3.2 %; EOSINOPHILS ABSOLUTE 0.17 10/3/uL (0.0-0.53); HEMATOCRIT 32.4 % (40.0-51.0); HEMOGLOBIN 11.4 g/dL (13.6-17.8); IMMATURE GRANULOCYTES 0.4 %; IMMATURE GRANULOCYTES ABSOLUTE 0.02 10/3/uL (0.0-0.11); LYMPHOCYTES 25.9 %; LYMPHOCYTES ABSOLUTE 1.38 10/3/uL (0.67-4.30); MANUAL DIFF NO %; MEAN CORPUS HGB CONC 35.2 g/dL (32.0-36.0); MEAN CORPUSCULAR HEMOGLOB 29.5 pg (26.0-34.0); MEAN CORPUSCULAR VOLUME 83.7 fL (80-100); MEAN PLATELET VOLUME 9.3 fL (9.2-13.0); MONOCYTES 11.4 %; MONOCYTES ABSOLUTE 0.61 10/3/uL (0.21-1.20); NEUTROPHILS 58.5 %; NEUTROPHILS ABSOLUTE 3.12 10/3/uL (2.02-8.40); PLATELET COUNT 205 10/3/uL (150-400); RBC DISTRIBUTION WIDTH 12.3 % (12.0-16.0); RED CELL COUNT 3.87 10/6/uL (4.7-6.1); WHITE BLOOD CELLS 5.3 10/3/uL (4.5-10.5)
[2017-03-25 02:02] LABS: CHLORIDE, SERUM 103 MMOL/L (96-112); CREATININE 0.99 MG/DL (0.70-1.30); GFR AFRICAN AMERICAN 94 ML/MIN (>=60); GFR NON AFRICAN AMERICAN 81 ML/MIN (>=60); POTASSIUM, SERUM 4.2 MMOL/L (3.5-5.3); SODIUM, SERUM 139 MMOL/L (135-148); VANCOMYCIN TROUGH 18.8 MCG/ML (10.0-20.0)
[2017-03-25 02:05] LABS: BUN (BLOOD UREA NITROGEN) 20 MG/DL (6-23); CO2 (CARBON DIOXIDE) 33 MMOL/L (24-34); GLUCOSE, SERUM 153 MG/DL (60-99)
[2017-03-26 05:26] LABS: BUN (BLOOD UREA NITROGEN) 20 MG/DL (6-23); CALCIUM, SERUM 9.1 MG/DL (8.5-10.4); CHLORIDE, SERUM 103 MMOL/L (96-112); CO2 (CARBON DIOXIDE) 31 MMOL/L (24-34); CREATININE 0.91 MG/DL (0.70-1.30); GFR AFRICAN AMERICAN 104 ML/MIN (>=60); GFR NON AFRICAN AMERICAN 89 ML/MIN (>=60); GLUCOSE, SERUM 123 MG/DL (60-99); HEMATOCRIT 33.3 % (40.0-51.0); HEMOGLOBIN 11.5 g/dL (13.6-17.8); MEAN CORPUS HGB CONC 34.5 g/dL (32.0-36.0); MEAN CORPUSCULAR HEMOGLOB 28.8 pg (26.0-34.0); MEAN CORPUSCULAR VOLUME 83.5 fL (80-100); MEAN PLATELET VOLUME 9.4 fL (9.2-13.0); PLATELET COUNT 235 10/3/uL (150-400); POTASSIUM, SERUM 4.4 MMOL/L (3.5-5.3); RBC DISTRIBUTION WIDTH 12.7 % (12.0-16.0); RED CELL COUNT 3.99 10/6/uL (4.7-6.1); SODIUM, SERUM 138 MMOL/L (135-148); WHITE BLOOD CELLS 5.8 10/3/uL (4.5-10.5)
[2017-03-26 05:28] LABS: MANUAL DIFF NO %
[2017-03-26 06:31] LABS: SED RATE 26 MM/HR (0-15)
[2017-03-28 05:55] LABS: BASOPHILS 0.5 %; BASOPHILS ABSOLUTE 0.03 10/3/uL (0.0-0.16); EOSINOPHILS 3.8 %; EOSINOPHILS ABSOLUTE 0.21 10/3/uL (0.0-0.53); HEMATOCRIT 32.5 % (40.0-51.0); HEMOGLOBIN 11.2 g/dL (13.6-17.8); IMMATURE GRANULOCYTES 0.4 %; IMMATURE GRANULOCYTES ABSOLUTE 0.02 10/3/uL (0.0-0.11); LYMPHOCYTES 35.6 %; LYMPHOCYTES ABSOLUTE 1.95 10/3/uL (0.67-4.30); MEAN CORPUS HGB CONC 34.5 g/dL (32.0-36.0); MEAN CORPUSCULAR HEMOGLOB 29.6 pg (26.0-34.0); MEAN CORPUSCULAR VOLUME 85.8 fL (80-100); MEAN PLATELET VOLUME 9.3 fL (9.2-13.0); MONOCYTES 8.4 %; MONOCYTES ABSOLUTE 0.46 10/3/uL (0.21-1.20); NEUTROPHILS 51.3 %; PLATELET COUNT 246 10/3/uL (150-400); RBC DISTRIBUTION WIDTH 12.5 % (12.0-16.0); RED CELL COUNT 3.79 10/6/uL (4.7-6.1); WHITE BLOOD CELLS 5.5 10/3/uL (4.5-10.5)
[2017-03-28 05:56] LABS: MANUAL DIFF NO %
[2017-03-28 06:08] LABS: BUN (BLOOD UREA NITROGEN) 20 MG/DL (6-23); CALCIUM, SERUM 9.2 MG/DL (8.5-10.4); CHLORIDE, SERUM 103 MMOL/L (96-112); CO2 (CARBON DIOXIDE) 28 MMOL/L (24-34); CREATININE 0.91 MG/DL (0.70-1.30); GFR AFRICAN AMERICAN 104 ML/MIN (>=60); GFR NON AFRICAN AMERICAN 89 ML/MIN (>=60); GLUCOSE, SERUM 125 MG/DL (60-99); SODIUM, SERUM 138 MMOL/L (135-148)
[2017-03-29 05:52] LABS: BASOPHILS 0.9 %; BASOPHILS ABSOLUTE 0.05 10/3/uL (0.0-0.16); EOSINOPHILS 4.4 %; EOSINOPHILS ABSOLUTE 0.24 10/3/uL (0.0-0.53); HEMATOCRIT 33.7 % (40.0-51.0); HEMOGLOBIN 11.7 g/dL (13.6-17.8); IMMATURE GRANULOCYTES 0.4 %; IMMATURE GRANULOCYTES ABSOLUTE 0.02 10/3/uL (0.0-0.11); LYMPHOCYTES ABSOLUTE 1.47 10/3/uL (0.67-4.30); MEAN CORPUS HGB CONC 34.7 g/dL (32.0-36.0); MEAN CORPUSCULAR VOLUME 83.6 fL (80-100); MEAN PLATELET VOLUME 9.2 fL (9.2-13.0); MONOCYTES 7.4 %; NEUTROPHILS 59.9 %; NEUTROPHILS ABSOLUTE 3.26 10/3/uL (2.02-8.40); PLATELET COUNT 234 10/3/uL (150-400); RBC DISTRIBUTION WIDTH 12.8 % (12.0-16.0); RED CELL COUNT 4.03 10/6/uL (4.7-6.1); WHITE BLOOD CELLS 5.4 10/3/uL (4.5-10.5)
[2017-03-29 05:54] LABS: MANUAL DIFF NO %
[2017-03-29 05:56] LABS: BUN (BLOOD UREA NITROGEN) 19 MG/DL (6-23); CHLORIDE, SERUM 107 MMOL/L (96-112); CO2 (CARBON DIOXIDE) 28 MMOL/L (24-34); CREATININE 0.82 MG/DL (0.70-1.30); GFR AFRICAN AMERICAN 109 ML/MIN (>=60); GFR NON AFRICAN AMERICAN 94 ML/MIN (>=60); GLUCOSE, SERUM 124 MG/DL (60-99); POTASSIUM, SERUM 4.1 MMOL/L (3.5-5.3); SODIUM, SERUM 142 MMOL/L (135-148)
[2017-03-29 14:45] LABS: CEA 0.8 NG/ML
[2017-03-30 06:20] LABS: BASOPHILS 0.4 %; BASOPHILS ABSOLUTE 0.02 10/3/uL (0.0-0.16); EOSINOPHILS ABSOLUTE 0.17 10/3/uL (0.0-0.53); HEMATOCRIT 33.2 % (40.0-51.0); HEMOGLOBIN 11.5 g/dL (13.6-17.8); IMMATURE GRANULOCYTES 0.4 %; IMMATURE GRANULOCYTES ABSOLUTE 0.02 10/3/uL (0.0-0.11); LYMPHOCYTES 27.1 %; LYMPHOCYTES ABSOLUTE 1.55 10/3/uL (0.67-4.30); MEAN CORPUS HGB CONC 34.6 g/dL (32.0-36.0); MEAN CORPUSCULAR VOLUME 83.8 fL (80-100); MEAN PLATELET VOLUME 9.2 fL (9.2-13.0); MONOCYTES 10.3 %; MONOCYTES ABSOLUTE 0.59 10/3/uL (0.21-1.20); NEUTROPHILS 58.8 %; NEUTROPHILS ABSOLUTE 3.36 10/3/uL (2.02-8.40); PLATELET COUNT 246 10/3/uL (150-400); RBC DISTRIBUTION WIDTH 12.8 % (12.0-16.0); RED CELL COUNT 3.96 10/6/uL (4.7-6.1); WHITE BLOOD CELLS 5.7 10/3/uL (4.5-10.5)
[2017-03-30 06:22] LABS: MANUAL DIFF NO %
[2017-03-30 06:30] LABS: CALCIUM, SERUM 9.1 MG/DL (8.5-10.4); CHLORIDE, SERUM 106 MMOL/L (96-112); CO2 (CARBON DIOXIDE) 30 MMOL/L (24-34); CREATININE 0.95 MG/DL (0.70-1.30); GFR AFRICAN AMERICAN 98 ML/MIN (>=60); GFR NON AFRICAN AMERICAN 85 ML/MIN (>=60); GLUCOSE, SERUM 131 MG/DL (60-99); POTASSIUM, SERUM 3.9 MMOL/L (3.5-5.3); SODIUM, SERUM 143 MMOL/L (135-148)
[2017-03-30 06:32] LABS: BUN (BLOOD UREA NITROGEN) 23 MG/DL (6-23)
[2017-03-31 05:39] LABS: BASOPHILS 0.6 %; BASOPHILS ABSOLUTE 0.04 10/3/uL (0.0-0.16); EOSINOPHILS 2.3 %; EOSINOPHILS ABSOLUTE 0.16 10/3/uL (0.0-0.53); HEMATOCRIT 34.9 % (40.0-51.0); IMMATURE GRANULOCYTES 0.4 %; IMMATURE GRANULOCYTES ABSOLUTE 0.03 10/3/uL (0.0-0.11); LYMPHOCYTES 23.8 %; LYMPHOCYTES ABSOLUTE 1.64 10/3/uL (0.67-4.30); MEAN CORPUS HGB CONC 34.4 g/dL (32.0-36.0); MEAN CORPUSCULAR HEMOGLOB 29.2 pg (26.0-34.0); MEAN CORPUSCULAR VOLUME 84.9 fL (80-100); MEAN PLATELET VOLUME 9.2 fL (9.2-13.0); MONOCYTES 9.2 %; MONOCYTES ABSOLUTE 0.63 10/3/uL (0.21-1.20); NEUTROPHILS 63.7 %; NEUTROPHILS ABSOLUTE 4.38 10/3/uL (2.02-8.40); PLATELET COUNT 249 10/3/uL (150-400); RBC DISTRIBUTION WIDTH 12.6 % (12.0-16.0); RED CELL COUNT 4.11 10/6/uL (4.7-6.1); WHITE BLOOD CELLS 6.9 10/3/uL (4.5-10.5)
[2017-03-31 05:42] LABS: MANUAL DIFF NO %
[2017-03-31 05:49] LABS: BUN (BLOOD UREA NITROGEN) 20 MG/DL (6-23); CALCIUM, SERUM 9.1 MG/DL (8.5-10.4); CHLORIDE, SERUM 105 MMOL/L (96-112); CO2 (CARBON DIOXIDE) 29 MMOL/L (24-34); CREATININE 0.93 MG/DL (0.70-1.30); GFR AFRICAN AMERICAN 101 ML/MIN (>=60); GFR NON AFRICAN AMERICAN 87 ML/MIN (>=60); GLUCOSE, SERUM 137 MG/DL (60-99); POTASSIUM, SERUM 3.9 MMOL/L (3.5-5.3); SODIUM, SERUM 141 MMOL/L (135-148)
[2017-04-01 10:17] LABS: BASOPHILS 0.3 %; BASOPHILS ABSOLUTE 0.02 10/3/uL (0.0-0.16); EOSINOPHILS 1.3 %; EOSINOPHILS ABSOLUTE 0.09 10/3/uL (0.0-0.53); HEMATOCRIT 34.2 % (40.0-51.0); HEMOGLOBIN 11.8 g/dL (13.6-17.8); IMMATURE GRANULOCYTES 0.3 %; IMMATURE GRANULOCYTES ABSOLUTE 0.02 10/3/uL (0.0-0.11); LYMPHOCYTES ABSOLUTE 1.29 10/3/uL (0.67-4.30); MEAN CORPUS HGB CONC 34.5 g/dL (32.0-36.0); MEAN CORPUSCULAR HEMOGLOB 29.4 pg (26.0-34.0); MEAN CORPUSCULAR VOLUME 85.1 fL (80-100); MEAN PLATELET VOLUME 9.1 fL (9.2-13.0); MONOCYTES 8.1 %; MONOCYTES ABSOLUTE 0.55 10/3/uL (0.21-1.20); NEUTROPHILS ABSOLUTE 4.81 10/3/uL (2.02-8.40); PLATELET COUNT 238 10/3/uL (150-400); RBC DISTRIBUTION WIDTH 12.5 % (12.0-16.0); RED CELL COUNT 4.02 10/6/uL (4.7-6.1); WHITE BLOOD CELLS 6.8 10/3/uL (4.5-10.5)
[2017-04-01 10:18] LABS: MANUAL DIFF NO %; RETICULOCYTE COUNT 1.3 % (0.5-2.5); RETICULOCYTE COUNT ABSOLUTE 50.3 10/3/uL (20.2-119.8)
[2017-04-01 10:28] LABS: BUN (BLOOD UREA NITROGEN) 20 MG/DL (6-23); CALCIUM, SERUM 9.1 MG/DL (8.5-10.4); CHLORIDE, SERUM 103 MMOL/L (96-112); CO2 (CARBON DIOXIDE) 33 MMOL/L (24-34); CREATININE 0.96 MG/DL (0.70-1.30); GFR AFRICAN AMERICAN 97 ML/MIN (>=60); GFR NON AFRICAN AMERICAN 84 ML/MIN (>=60); SODIUM, SERUM 140 MMOL/L (135-148)
[2017-04-01 10:29] LABS: GLUCOSE, SERUM 173 MG/DL (60-99)
[2017-04-03 10:31] LABS: BUN (BLOOD UREA NITROGEN) 24 MG/DL (6-23); CHLORIDE, SERUM 103 MMOL/L (96-112); CO2 (CARBON DIOXIDE) 33 MMOL/L (24-34); CREATININE 1.08 MG/DL (0.70-1.30); GFR AFRICAN AMERICAN 84 ML/MIN (>=60); GFR NON AFRICAN AMERICAN 73 ML/MIN (>=60); GLUCOSE, SERUM 207 MG/DL (60-99); POTASSIUM, SERUM 4.4 MMOL/L (3.5-5.3); SODIUM, SERUM 138 MMOL/L (135-148)
[2017-04-03 11:07] LABS: BASOPHILS ABSOLUTE 0.06 10/3/uL (0.0-0.16); EOSINOPHILS 1.7 %; HEMATOCRIT 33.7 % (40.0-51.0); HEMOGLOBIN 11.7 g/dL (13.6-17.8); IMMATURE GRANULOCYTES 0.3 %; IMMATURE GRANULOCYTES ABSOLUTE 0.02 10/3/uL (0.0-0.11); LYMPHOCYTES 23.6 %; LYMPHOCYTES ABSOLUTE 1.39 10/3/uL (0.67-4.30); MEAN CORPUS HGB CONC 34.7 g/dL (32.0-36.0); MEAN CORPUSCULAR HEMOGLOB 29.9 pg (26.0-34.0); MEAN CORPUSCULAR VOLUME 86.2 fL (80-100); MEAN PLATELET VOLUME 9.5 fL (9.2-13.0); MONOCYTES 8.1 %; MONOCYTES ABSOLUTE 0.48 10/3/uL (0.21-1.20); NEUTROPHILS 65.3 %; NEUTROPHILS ABSOLUTE 3.85 10/3/uL (2.02-8.40); PLATELET COUNT 242 10/3/uL (150-400); RBC DISTRIBUTION WIDTH 12.6 % (12.0-16.0); RED CELL COUNT 3.91 10/6/uL (4.7-6.1); RETICULOCYTE COUNT 1.2 % (0.5-2.5); RETICULOCYTE COUNT ABSOLUTE 47.7 10/3/uL (20.2-119.8); WHITE BLOOD CELLS 5.9 10/3/uL (4.5-10.5)
[2017-04-03 11:11] LABS: MANUAL DIFF NO %
[2017-04-05 05:52] LABS: BASOPHILS 0.6 %; BASOPHILS ABSOLUTE 0.04 10/3/uL (0.0-0.16); EOSINOPHILS 3.1 %; HEMATOCRIT 33.1 % (40.0-51.0); HEMOGLOBIN 11.5 g/dL (13.6-17.8); IMMATURE GRANULOCYTES 0.2 %; IMMATURE GRANULOCYTES ABSOLUTE 0.01 10/3/uL (0.0-0.11); LYMPHOCYTES 24.7 %; LYMPHOCYTES ABSOLUTE 1.62 10/3/uL (0.67-4.30); MEAN CORPUS HGB CONC 34.7 g/dL (32.0-36.0); MEAN CORPUSCULAR HEMOGLOB 29.6 pg (26.0-34.0); MEAN CORPUSCULAR VOLUME 85.1 fL (80-100); MEAN PLATELET VOLUME 9.3 fL (9.2-13.0); MONOCYTES 8.7 %; MONOCYTES ABSOLUTE 0.57 10/3/uL (0.21-1.20); NEUTROPHILS 62.7 %; NEUTROPHILS ABSOLUTE 4.11 10/3/uL (2.02-8.40); PLATELET COUNT 268 10/3/uL (150-400); RBC DISTRIBUTION WIDTH 12.5 % (12.0-16.0); RED CELL COUNT 3.89 10/6/uL (4.7-6.1); WHITE BLOOD CELLS 6.6 10/3/uL (4.5-10.5)
[2017-04-05 06:00] LABS: BUN (BLOOD UREA NITROGEN) 22 MG/DL (6-23); CALCIUM, SERUM 9.2 MG/DL (8.5-10.4); CHLORIDE, SERUM 105 MMOL/L (96-112); CO2 (CARBON DIOXIDE) 29 MMOL/L (24-34); CREATININE 0.78 MG/DL (0.70-1.30); GFR AFRICAN AMERICAN 111 ML/MIN (>=60); GFR NON AFRICAN AMERICAN 96 ML/MIN (>=60); SODIUM, SERUM 141 MMOL/L (135-148)
[2017-04-05 06:02] LABS: MANUAL DIFF NO %
[2017-04-05 06:10] LABS: GLUCOSE, SERUM 125 MG/DL (60-99)
[2017-04-09 05:05] LABS: BASOPHILS 0.6 %; BASOPHILS ABSOLUTE 0.03 10/3/uL (0.0-0.16); EOSINOPHILS ABSOLUTE 0.16 10/3/uL (0.0-0.53); IMMATURE GRANULOCYTES 0.2 %; IMMATURE GRANULOCYTES ABSOLUTE 0.01 10/3/uL (0.0-0.11); LYMPHOCYTES 30.9 %; LYMPHOCYTES ABSOLUTE 1.64 10/3/uL (0.67-4.30); MEAN CORPUS HGB CONC 34.3 g/dL (32.0-36.0); MEAN CORPUSCULAR VOLUME 84.5 fL (80-100); MEAN PLATELET VOLUME 9.3 fL (9.2-13.0); MONOCYTES 8.1 %; MONOCYTES ABSOLUTE 0.43 10/3/uL (0.21-1.20); NEUTROPHILS 57.2 %; NEUTROPHILS ABSOLUTE 3.03 10/3/uL (2.02-8.40); PLATELET COUNT 284 10/3/uL (150-400); RBC DISTRIBUTION WIDTH 12.5 % (12.0-16.0); RED CELL COUNT 4.14 10/6/uL (4.7-6.1); WHITE BLOOD CELLS 5.3 10/3/uL (4.5-10.5)
[2017-04-09 05:07] LABS: MANUAL DIFF NO %
[2017-04-09 05:18] LABS: BUN (BLOOD UREA NITROGEN) 32 MG/DL (6-23); CALCIUM, SERUM 9.7 MG/DL (8.5-10.4); CHLORIDE, SERUM 102 MMOL/L (96-112); CO2 (CARBON DIOXIDE) 28 MMOL/L (24-34); CREATININE 0.96 MG/DL (0.70-1.30); GFR AFRICAN AMERICAN 97 ML/MIN (>=60); GFR NON AFRICAN AMERICAN 84 ML/MIN (>=60); GLUCOSE, SERUM 114 MG/DL (60-99); POTASSIUM, SERUM 4.4 MMOL/L (3.5-5.3); SODIUM, SERUM 138 MMOL/L (135-148)
[2017-04-09] MEDS ORDERED: PRIN5 PO (10:44)
[2017-04-09] MEDS ORDERED: LAC-HYDRIN TOP (10:45)
[2017-04-09] MEDS ORDERED: ARICEPT5 PO (10:46)
[2017-04-09] MEDS ORDERED: MULTIPLE VIT PO (10:46)
[2017-04-12 06:44] LABS: BASOPHILS 0.5 %; BASOPHILS ABSOLUTE 0.03 10/3/uL (0.0-0.16); EOSINOPHILS 2.4 %; EOSINOPHILS ABSOLUTE 0.13 10/3/uL (0.0-0.53); HEMATOCRIT 34.8 % (40.0-51.0); HEMOGLOBIN 12.1 g/dL (13.6-17.8); IMMATURE GRANULOCYTES 0.4 %; IMMATURE GRANULOCYTES ABSOLUTE 0.02 10/3/uL (0.0-0.11); LYMPHOCYTES 35.6 %; LYMPHOCYTES ABSOLUTE 1.95 10/3/uL (0.67-4.30); MEAN CORPUS HGB CONC 34.8 g/dL (32.0-36.0); MEAN CORPUSCULAR HEMOGLOB 28.9 pg (26.0-34.0); MEAN CORPUSCULAR VOLUME 83.3 fL (80-100); MEAN PLATELET VOLUME 9.5 fL (9.2-13.0); MONOCYTES 7.7 %; MONOCYTES ABSOLUTE 0.42 10/3/uL (0.21-1.20); NEUTROPHILS 53.4 %; NEUTROPHILS ABSOLUTE 2.92 10/3/uL (2.02-8.40); PLATELET COUNT 254 10/3/uL (150-400); RBC DISTRIBUTION WIDTH 12.5 % (12.0-16.0); RED CELL COUNT 4.18 10/6/uL (4.7-6.1); WHITE BLOOD CELLS 5.5 10/3/uL (4.5-10.5)
[2017-04-12 06:50] LABS: MANUAL DIFF NO %
[2017-04-12 06:55] LABS: BUN (BLOOD UREA NITROGEN) 29 MG/DL (6-23); CALCIUM, SERUM 9.4 MG/DL (8.5-10.4); CHLORIDE, SERUM 103 MMOL/L (96-112); CO2 (CARBON DIOXIDE) 27 MMOL/L (24-34); CREATININE 0.91 MG/DL (0.70-1.30); GFR AFRICAN AMERICAN 104 ML/MIN (>=60); GFR NON AFRICAN AMERICAN 89 ML/MIN (>=60); GLUCOSE, SERUM 103 MG/DL (60-99); POTASSIUM, SERUM 4.4 MMOL/L (3.5-5.3); SODIUM, SERUM 139 MMOL/L (135-148)
[2017-04-13] MEDS ORDERED: CYANO1000T PO (14:46)
[2017-04-13] MEDS ORDERED: FOLIC PO (14:47)
[2017-04-13] MEDS ORDERED: MIRALAX POWDER1 PKT PO (14:47)
[2017-04-13] MEDS ORDERED: SENTAB PO (14:48)
== END 2017-04-13 18:56 | disposition home or self-care (01) | DRG 629 ==
LOC: 6NO 10:38
PROVIDERS: Anesthesiology; Internal Medicine; Internal Medicine Infectious Disease; Nurse Practitioner Family; Podiatrist
PROC: 0LXW0ZZ Transfer Left Foot Tendon, Open Approach (ICD-10-PCS; 2017-03-20)
PROC: 0QBP0ZZ Excision of Left Metatarsal, Open Approach (ICD-10-PCS; principal; 2017-03-20 17:15)
DX: E11.69 Type 2 diabetes mellitus with other specified complication (principal); M86.9 Osteomyelitis, unspecified; E11.40 Type 2 diabetes mellitus with diabetic neuropathy, unspecified; E11.621 Type 2 diabetes mellitus with foot ulcer; D50.9 Iron deficiency anemia, unspecified; I95.1 Orthostatic hypotension; I10 Essential (primary) hypertension; R44.1 Visual hallucinations; B95.62 Methicillin resistant Staphylococcus aureus infection as the cause of diseases classified elsewhere; G31.83 Neurocognitive disorder with Lewy bodies; F02.80 Dementia in other diseases classified elsewhere, unspecified severity, without behavioral disturbance, psychotic disturbance, mood disturbance, and anxiety; L97.524 Non-pressure chronic ulcer of other part of left foot with necrosis of bone; Z89.422 Acquired absence of other left toe(s); R26.9 Unspecified abnormalities of gait and mobility; E11.65 Type 2 diabetes mellitus with hyperglycemia; Z88.0 Allergy status to penicillin; Z79.84 Long term (current) use of oral hypoglycemic drugs; W19.XXXA Unspecified fall, initial encounter; Y93.9 Activity, unspecified; Y92.239 Unspecified place in hospital as the place of occurrence of the external cause
CPT/HCPCS: 70553; 71020; 73600-LT; 73630-LT; 73723-LT; 80048; 80053; 80202; 81001; 82272; 82378; 82565; 82607; 82728; 82962; 83036; 83540; 83550; 83615; 84155; 84165; 84443; 85014; 85018; 85025; 85045; 85610; 85652; 86140; 87015; 87040; 87070; 87075; 87077; 87102; 87116; 87186; 87205; 88304; 88311; 93005; 93925; 95819; 97110-GP; 97116-GP; 97162-GP; 97164-GP; A9270-GY; A9577; C1713; G8978-CK-GP; G8979-CJ-GP; J2250; J2916; J3010; J3370